=== PATIENT | male | born 1985 | race African-American/Black ===

== ENCOUNTER 2021-03-16 09:25 | Inpatient (IN) | payer OTHER, SELFPAY ==
[2021-03-16] MEDS ORDERED: DIPHENHYDRAMINE 50 MG/ML VIAL ONE (10:31)
[2021-03-16] MEDS ORDERED: METOCLOPRAMIDE 10 MG/2mL INJ ONE (10:31)
[2021-03-16] MEDS ORDERED: NA CHLORIDE 0.9% 500 ML ONE (10:31)
--- NOTE | 2021-03-16 10:40 | RAD REPORT ---
EXAM DESCRIPTION: CT - Head Brain Wo Cont - 03/16/2021 10:31 am CLINICAL HISTORY: HEADACHE Headache, hypertension, drowsiness COMPARISON: No comparisons TECHNIQUE: All CT scans are performed using dose optimization technique as appropriate and may inclu de automated exposure control or mA/KV adjustment according to patient size. FINDINGS: No intracranial hemorrhage, hydrocephalus or extra-axial fluid collection.There is a 17-18 mm area of diminished density seen in the region of the right insular cortex. No midline shift is ev ident. The paranasal sinuses and mastoids are clear. The calvarium is intact. IMPRESSION: 17 mm area of diminished density is seen in the right insular cortex region. Subacute CV A is a possibility. Recommend follow-up MRI brain with contrast for further assessment.
[2021-03-16 10:43] LABS: Absolute Lymphocytes (CBC) 2.8 K/uL (0.7-4.9); Basophils % 0.8 % (0-1.3); Hematocrit 45.2 % (39.6-49.0); MPV 8.9 fL (7.6-11.3); RBC Red Blood Cell Count 4.91 M/uL (4.33-5.43)
[2021-03-16 10:49] LABS: BUN Blood Urea Nitrogen 12 mg/dL (7-18); Bicarbonate 26 mmol/L (21-32); Glucose Level 168 mg/dL (74-106); Potassium 3.8 mmol/L (3.5-5.1); Sodium Level 138 mmol/L (136-145); Troponin (Emerg Dept Use Only) < 0.02 ng/mL (0.0-0.045)
--- NOTE | 2021-03-16 12:56 | RAD REPORT ---
EXAM DESCRIPTION: MRI - Brain W/Wo Cont - 03/16/2021 12:46 pm CLINICAL HISTORY: Headache COMPARISON: January 14, [address] TECHNIQUE: Axial, sagittal, and coronal magnetic images of the brain were obtained. 20 cc MultiHance administered intravenously FINDINGS: 25 millimeter area of abnormal signal right insular cortex. It does not enhance. Diffusion -weighted/ADC mapping sequences reveal that it is not an acute infarction No abnormal enhancement within the brain is seen. An extra-axial fluid collection is not noted. The ventricles are normal caliber Fluid within the sinuses/mastoids is not seen IMPRESSION: A 25 millimeter mass right insular cortex may represent a late subacute infarct or nonen hancing glioma. Prior inflammation is another consideration. Close follow-up recommended
--- NOTE | 2021-03-16 13:39 | ER ---
Nurse's Notes [facility] Name: Yusuf Garcia Age: 36 yrs Sex: Male : 1985 Arrival Date: 03/16/2021 Time: 09:31 Bed 17 Private MD: Diagnosis: Cerebral infarction Presentation: 03/16 09:41 Chief complaint: Patient states: headache x 1 month ago. Pt denies nausea/vomiting. aa5 09:41 Onset of symptoms was February 2021. aa5 09:41 Acuity: FIDENCIO 3 aa5 09:41 Method Of Arrival: Ambulatory aa5 09:41 Coronavirus screen: headache. Ebola Screen: Patient negative for fever greater than or aa5 equal to 101.5 degrees Fahrenheit, and additional compatible Ebola Virus Disease symptoms. Initial Sepsis Screen: Does the patient meet any 2 criteria? No. Patient's initial sepsis screen is negative. Does the patient have a suspected source of infection? No. Patient's initial sepsis screen is negative. Risk Assessment: Do you want to hurt yourself or someone else? Patient reports no desire to harm self or others. Triage Assessment: 10:27 Pain: Pain currently is 5 out of 10 on a pain scale. Pain began gradually, Also tr6 complains of no other associated symptoms. 10:28 Headache History: The patient has had previous headaches. General: Appears in no tr6 apparent distress. Historical: - Allergies: 10:05 No Known Allergies; aa5 - PMHx: 10:05 Hypertension; aa5 - PSHx: 10:05 hand sx; aa5 - Immunization history:: Adult Immunizations unknown. - Social history:: Smoking status: Patient reports the use of cigarette tobacco products, smokes one-half pack cigarettes per day. Screenin:27 Abuse screen: Denies threats or abuse. Denies injuries from another. Nutritional tr6 screening: No deficits noted. Tuberculosis screening: No symptoms or risk factors identified. Fall Risk None identified. Assessment: 10:25 General: Appears in no apparent distress. Behavior is calm, cooperative, appropriate tr6 for age. Pain: Complains of pain in c/o headache. Neuro: No deficits noted. Cardiovascular: No deficits noted. Respiratory: No deficits noted. GI: No deficits noted. : No deficits noted. EENT: No deficits noted. Derm: No deficits noted. Musculoskeletal: No deficits noted. 10:27 Reassessment: pt transported to CT via wheelchair. tr6 10:33 Reassessment: pt returned from ct. tr6 12:00 Reassessment: Patient and/or family updated on plan of care and expected duration. Pain tr6 level reassessed. Patient is alert, oriented x 3, equal unlabored respirations, skin warm/dry/pink. results reviewed with pt by PA. pt reports that his headache is better. Vital Signs: 09:41 BP 179 / 128; Pulse 85; Resp 18 S; Temp 98.2(TE); Pulse Ox 97% on R/A; Weight 106.59 kg aa5 (R); Height 6 ft. 1 in. (185.42 cm) (R); 10:24 BP 178 / 118; Resp 18; Pulse Ox 96% ; tr6 12:12 BP 143 / 89; Pulse 82; Resp 18; Pulse Ox 98% ; tr6 14:21 BP 176 / 111; Pulse 82; Resp 18; Pulse Ox 98% ; tr6 09:41 Body Mass Index 31.00 (106.59 kg, 185.42 cm) aa5 ED Course: 09:31 Patient arrived in ED. am2 09:31 Devendra Reynolds PA is PHCP. jm 09:31 Jared Shaffer MD is Attending Physician. jmm 09:41 Arm band placed on. aa5 09:59 Triage completed. aa5 10:24 No provider procedures requiring assistance completed. Inserted saline lock: 20 gauge tr6 in right antecubital area, using aseptic technique. Blood collected. 10:26 Troponin (emerg Dept Use Only) Sent. tr6 10:27 CBC with Diff Sent. tr6 10:27 Troponin (Emerg Dept Use Only) Sent. tr6 10:27 CBC with Automated Diff Sent. tr6 10:28 Patient has correct armband on for positive identification. Bed in low position. Call tr6 light in reach. Side rails up X 1. 10:34 CT Head Brain wo Cont In Process Unspecified. EDMS 13:39 Gordon Fragoso MD is Hospitalizing Provider. jmm 14:20 COVID-19 : Document "Date of Symptom Onset" if Symptomatic. Sent. tr6 Administered Medications: 10:26 Drug: NS 0.9% 500 ml Route: IV; Rate: bolus; Site: right antecubital; tr6 11:10 Follow up: IV Status: Completed infusion; IV Intake: 500ml tr6 10:26 Drug: Reglan (metoCLOPramide) 20 mg Route: IVP; Site: right antecubital; tr6 11:10 Follow up: Response: No adverse reaction; Pain is decreased tr6 10:26 Drug: diphenhydrAMINE 12.5 mg Route: IVP; Site: right antecubital; tr6 11:10 Follow up: Response: No adverse reaction tr6 14:03 Drug: PlaVIX (clopidogrel) 75 mg Route: PO; tr6 14:04 Follow up: Response: No adverse reaction tr6 14:03 Drug: Aspirin Chewable Tablet 324 mg Route: PO; tr6 14:03 Follow up: Response: No adverse reaction tr6 14:03 Drug: foLIC Acid 1 mg Route: IVPB; Site: right antecubital; tr6 14:04 Follow up: Response: No adverse reaction; IV Status: Completed infusion; IV Intake: 1ml tr6 Intake: 11:10 IV: 500ml; Total: 500ml. tr6 14:04 IV: 1ml; Total: 501ml. tr6 Outcome: 13:39 Decision to Hospitalize by Provider. kyung 19:24 Patient left the ED. ea Signatures: Dispatcher [employer] EDMS Devendra Reynolds PA PA jmm Calderon, Audri RN RN aa5 Antoinette Hidalgo Elena, RN RN ea Ramnanan, Tiffany, RN RN tr6 Corrections: (The following items were deleted from the chart) 09:59 09:53 Arm band placed on aa5 aa5
--- NOTE | 2021-03-16 13:40 | EDPHYS ---
Physician Documentation [facility] Name: Yusuf Garcia Age: 36 yrs Sex: Male : 1985 Arrival Date: 03/16/2021 Time: 09:31 Bed 17 Private MD: RG Physician Jared Shaffer HPI: 03/16 10:14 This 36 yrs old Black Male presents to ER via Ambulatory with complaints of Headache. jmm 10:14 The patient complains of pain to the forehead, left eye, left caodaism, left frontal jmm area, left side of the back of head, left temporal area and left occipital area. Onset: The symptoms/episode began/occurred gradually, 1 month(s) ago. Associated signs and symptoms: Pertinent negatives: fever, neck stiffness, paresthesias, Photophobia vision loss, vomiting. The patient has not experienced similar symptoms in the past. Historical: - Allergies: 10:05 No Known Allergies; aa5 - PMHx: 10:05 Hypertension; aa5 - PSHx: 10:05 hand sx; aa5 - Immunization history:: Adult Immunizations unknown. - Social history:: Smoking status: Patient reports the use of cigarette tobacco products, smokes one-half pack cigarettes per day. ROS: 10:14 Constitutional: Negative for fever, chills, and weight loss, Cardiovascular: Negative jmm for chest pain, palpitations, and edema, Respiratory: Negative for shortness of breath, cough, wheezing, and pleuritic chest pain. 10:14 Neuro: Positive for headache. 10:14 All other systems are negative. Exam: 10:14 Constitutional: This is a well developed, well nourished patient who is awake, alert, jmm and in no acute distress. Head/Face: atraumatic. Eyes: EOMI, no conjunctival erythema appreciated ENT: Moist Mucus Membranes Neck: Trachea midline, Supple Chest/axilla: Normal chest wall appearance and motion. Cardiovascular: Regular rate and rhythm. No edema appreciated Respiratory: Normal respirations, no respiratory distress appreciated Abdomen/GI: Non distended, soft Back: Normal ROM Skin: General appearance color normal MS/ Extremity: Moves all extremities, no obvious deformities appreciated, no edema noted to the lower extremities Neuro: Awake and alert, normal gait Psych: Behavior is normal, Mood is normal, Patient is cooperative and pleasant Vital Signs: 09:41 BP 179 / 128; Pulse 85; Resp 18 S; Temp 98.2(TE); Pulse Ox 97% on R/A; Weight 106.59 kg aa5 (R); Height 6 ft. 1 in. (185.42 cm) (R); 10:24 BP 178 / 118; Resp 18; Pulse Ox 96% ; tr6 12:12 BP 143 / 89; Pulse 82; Resp 18; Pulse Ox 98% ; tr6 14:21 BP 176 / 111; Pulse 82; Resp 18; Pulse Ox 98% ; tr6 09:41 Body Mass Index 31.00 (106.59 kg, 185.42 cm) aa5 MDM: 09:48 Patient medically screened. nini 13:36 Data reviewed: vital signs, nurses notes. Counseling: I had a detailed discussion with kyung the patient and/or guardian regarding: the historical points, exam findings, and any diagnostic results supporting the discharge/admit diagnosis, lab results, radiology results, the need for further work-up and treatment in the hospital. ED course: I discussed the patient with Dr. West whom recommends admission for further CVA evaluation. I discussed the patient with Dr. Rendon whom accepted the patient for admission. . 03/16 10:06 Order name: CBC with Diff [facility] 03/16 10:06 Order name: Troponin (emerg Dept Use Only) [facility] 03/16 10:06 Order name: BMP; Complete Time: 10:59 [facility] 03/16 10:06 Order name: CBC with Automated Diff; Complete Time: 10:59 [facility] 03/16 10:06 Order name: Troponin (Emerg Dept Use Only); Complete Time: 10:59 [facility] 03/16 14:18 Order name: COVID-19 : Document "Date of Symptom Onset" if Symptomatic. [facility] 03/16 10:08 Order name: CT Head Brain wo Cont; Complete Time: 10:43 [facility] 03/16 10:45 Order name: MRI - Brain Wo Cont [facility] 03/16 12:57 Order name: MRI; Complete Time: 13:09 [facility] 03/16 13:17 Order name: MRI - Brain With Cont [facility] 03/16 14:33 Order name: CORONAVIRUS [facility] 03/16 15:20 Order name: SARS-COV-2 RT PCR; Complete Time: 16:38 [facility] 03/16 18:21 Order name: Hemoglobin A1c; Complete Time: 18:25 [facility] 03/16 10:06 Order name: EKG - Nurse/Tech; Complete Time: 12:08 [facility] 03/16 10:06 Order name: Saline Lock; Complete Time: 10:27 [facility] 03/16 12:51 Order name: Diet Regular; Complete Time: 12:52 [facility] 03/16 14:17 Order name: Diet Regular; Complete Time: 14:18 mt Administered Medications: 10:26 Drug: NS 0.9% 500 ml Route: IV; Rate: bolus; Site: right antecubital; tr6 11:10 Follow up: IV Status: Completed infusion; IV Intake: 500ml tr6 10:26 Drug: Reglan (metoCLOPramide) 20 mg Route: IVP; Site: right antecubital; tr6 11:10 Follow up: Response: No adverse reaction; Pain is decreased tr6 10:26 Drug: diphenhydrAMINE 12.5 mg Route: IVP; Site: right antecubital; tr6 11:10 Follow up: Response: No adverse reaction tr6 14:03 Drug: PlaVIX (clopidogrel) 75 mg Route: PO; tr6 14:04 Follow up: Response: No adverse reaction tr6 14:03 Drug: Aspirin Chewable Tablet 324 mg Route: PO; tr6 14:03 Follow up: Response: No adverse reaction tr6 14:03 Drug: foLIC Acid 1 mg Route: IVPB; Site: right antecubital; tr6 14:04 Follow up: Response: No adverse reaction; IV Status: Completed infusion; IV Intake: 1ml tr6 Disposition: 03/17 07:26 Co-signature as Attending Physician, Jared Shaffer MD I agree with the assessment and nini plan of care. Disposition: 03/16/21 13:39 Hospitalization ordered by Gordon Fragoso for Inpatient Admission. Preliminary diagnosis is Cerebral infarction. - Bed requested for Telemetry/MedSurg (Inpatient). - Status is Inpatient Admission. ea - Condition is Stable. - Problem is new. - Symptoms are unchanged. Signatures: Dispatcher [employer] Mona Fabian RN RN dw Anderson, Corey, MD MD cha Mickail, Joel, PA PA Lore Olivera RN RN aa5 Raegan Okeefe RN RN Kristi Heller, RN RN tr6 Corrections: (The following items were deleted from the chart) 03/16 17:58 13:39 Hospitalization Ordered by Gordon Fragoso MD for Inpatient Admission. Preliminary dw diagnosis is Cerebral infarction. Bed requested for Telemetry/MedSurg (Inpatient). Status is Inpatient Admission. Condition is Stable. Problem is new. Symptoms are unchanged. [facility] 19:24 17:58 03/16/2021 13:39 Hospitalization Ordered by Gordon Fragoso MD for Inpatient ea Admission. Preliminary diagnosis is Cerebral infarction. Bed requested for Telemetry/MedSurg (Inpatient). Status is Inpatient Admission. Condition is Stable. Problem is new. Symptoms are unchanged. dw
[2021-03-16] MEDS ORDERED: ONDANSETRON 4 MG/2 ML VIAL IV PRN (13:57)
--- NOTE | 2021-03-16 14:03 | P.HP ---
Certification for Inpatient Patient admitted to: Observation With expected LOS: <2 Midnights Patient will require the following post-hospital care: None Practitioner: I am a practitioner with admitting privileges, knowledge of patient current condition, hospital course, and medical plan of care. Services: Services provided to patient in accordance with Admission requirements found in Title 42 Section 412.3 of the Code of Federal Regulations Patient History Date of Service: 03/16/21 Reason for admission: Headaches, TIA, uncontrolled hypertension History of Present Illness: y o male pt with hx of poorly controlled hypertension and hx of tobacco use who came to the ED for work up of suspected stroke. he had been having headaches for the last few weeks. He denied any overt feeling of weakness in any limbs. 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 He denied any falls or prior issues with strokes. No family hx of strokes. His work up was positive for a 25mm mass like lesion in the brain and no overt acute infarct on MRI. He was asked to be admitted for full neurology evaluation. Allergies Pertussis Vaccines Allergy (Uncoded 02/10/15 11:45) Unknown Review of Systems General: Weakness, Malaise Eyes: Unremarkable ENT: Unremarkable Respiratory: Unremarkable Cardiovascular: Unremarkable Gastrointestinal: Unremarkable Musculoskeletal: Unremarkable Integumentary: As per HPI, Unremarkable Neurological: Numbness, Unremarkable Physical Examination - Physical Exam General: Alert, Oriented x3, Cooperative HEENT: Atraumatic, Normocephalic Neck: Supple Respiratory: Clear to auscultation bilaterally Cardiovascular: Regular rate/rhythm, Normal S1 S2 Gastrointestinal: Soft and benign Neurological: Normal speech, Normal strength at 5/5 x4 extr, Normal tone, Cranial nerves 3-12 intact, Normal reflexes 2+, Normal affect - Studies Laboratory Data (last 24 hrs) 03/16/21 10:22: Sodium 138, Potassium 3.8, BUN 12, Creatinine 1.00, Glucose 168 H 03/16/21 10:22: WBC 13.10 H, Hgb 15.1, Hct 45.2, Plt Count 288 Assessment and Plan - Plan 1. Hypertension: His blood pressure is elevated at 170/113mmhg. In view of his suspected stroke, we will allow permissive hypertension for now. we will follow stroke BP protocol pending neurologist recommendation. 2. Brain TIA/mass: His presentation is concerning. He does have a mass like lesion in the brain measured at 25mm which may represent a subacute CVA also. we will work up further with lipid panel, hbA1c, echocardiogram. Neurologist to evaluate. CVA hypertension protocol to be followed. 3. Tobacco abuse: we will encourage tobacco use cessation. Discharge Plan: Home - Advance Directives Does patient have a Living Will: No Does patient have a Durable POA for Healthcare: No
[2021-03-16] MEDS ORDERED: FOLIC ACID 5 MG/ML VIAL ONE (14:15)
[2021-03-16] MEDS ORDERED: ASPIRIN 81 MG CHEWABLE TABLET ONE (14:16)
[2021-03-16] MEDS ORDERED: CLOPIDOGREL 75 MG TABLET ONE (14:16)
[2021-03-16] MEDS: ASPIRIN 81 MG CHEWABLE TABLET PO SCH (15:00)
[2021-03-16] MEDS ORDERED: NA CHLORIDE 0.9% 1,000 ML IV SCH (15:00)
[2021-03-16] MEDS: ENOXAPARIN 40 MG/0.4 ML SQ SCH (15:00)
[2021-03-16 15:49] VITALS: BMI 30.9
[2021-03-16] MEDS ORDERED: NA CHLORIDE 0.9% 1,000 ML ONE (16:34)
[2021-03-16] MEDS ORDERED: ENOXAPARIN 40 MG/0.4 ML SQ ONE (16:34)
[2021-03-16] MEDS: ZOLPIDEM TARTRATE 5 MG TABLET PO PRN (22:29)
[2021-03-16] MEDS: HYDRALAZINE HCL 20 MG/ML VIAL IV PRN (22:29)
[2021-03-17 04:16] LABS: Absolute Lymphocytes (CBC) 3.4 K/uL (0.7-4.9); Basophils % 0.8 % (0-1.3); Hematocrit 43.8 % (39.6-49.0); Lymphocytes % 24.6 % (15.3-44.8); MPV 8.7 fL (7.6-11.3); RBC Red Blood Cell Count 4.73 M/uL (4.33-5.43)
[2021-03-17 04:32] LABS: ALT/SGPT 83 U/L (12-78); AST/SGOT 51 U/L (15-37); Albumin 3.8 g/dL (3.4-5.0); Alkaline Phosphatase 101 U/L (45-117); BUN Blood Urea Nitrogen 15 mg/dL (7-18); Bicarbonate 32 mmol/L (21-32); Bilirubin Total 0.4 mg/dL (0.2-1.0); Glucose Level 136 mg/dL (74-106); HDL Cholesterol 33 mg/dL (40-60); Potassium 3.8 mmol/L (3.5-5.1); Protein, Total 7.7 g/dL (6.4-8.2); Sodium Level 139 mmol/L (136-145)
[2021-03-17 04:44] LABS: LDL, Direct 144 mg/dL (100-129)
[2021-03-17] MEDS: ENOXAPARIN 40 MG/0.4 ML SQ SCH (09:00)
[2021-03-17] MEDS: HYDRALAZINE HCL 20 MG/ML VIAL IV PRN ×2 (09:03→16:39)
[2021-03-17] MEDS: ASPIRIN 81 MG CHEWABLE TABLET PO SCH (09:03)
--- NOTE | 2021-03-17 10:48 | EKG ---
Test Date: 2021-03-16 Test Time: 12:02:07 Instructional Design Manager: SANIA MEASUREMENT RESULTS: Intervals: Rate: 75 OK: 158 QRSD: 96 QT: 392 QTc: 437 [place]: P: 50 OK: 158 QRS: 8 T: 206 INTERPRETIVE STATEMENTS: Normal sinus rhythm ST & T wave abnormality, consider inferolateral ischemia Abnormal ECG No previous ECG available for comparison Electronically Signed On 03-17-21 10:46:42 CDT by Jude Huerta
--- NOTE | 2021-03-17 11:51 | ECHO ---
HEIGHT: 6 ft 1 in WEIGHT: 235 lb 0 oz DATE OF STUDY: 03/17/[address]: Gordon Fragoso MD 2-DIMENSIONAL: YES M.MODE: YES DOPPLER: YES COLOR FLOW: YES TDS: PORTABLE: DEFINITY: BUBBLE STUDY: DIAGNOSIS: CEREBRAL VASCULAR ACCIENT SYMPTOMS CARDIAC HISTORY: CATHERIZATION: NO SURGERY: NO PROSTHETIC VALVE: NO PACEMAKER: NO MEASUREMENTS (cm) DIASTOLIC (NORMALS) SYSTOLIC (NORMALS) IVSd 1.3 (0.6-1.2) LA Diam 2.6 (1.9-4.0) LVEF 44% LVIDd 4.9 (3.5-5.7) LVIDs 3.8 (2.0-3.5) %FS 22% LVPWd 1.3 (0.6-1.2) Ao Diam 3.0 (2.0-3.7) 2 DIMENSIONAL ASSESSMENT: RIGHT ATRIUM: NORMAL LEFT ATRIUM: NORMAL RIGHT VENTRICLE: NORMAL LEFT VENTRICLE: LEFT VENTRICULAR HYPERTROPHY TRICUSPID VALVE: NORMAL MITRAL VALVE: NORMAL PULMONIC VALVE: NORMAL AORTIC VALVE: NORMAL PERICARDIAL EFFUSION: NONE AORTIC ROOT: NORMAL LEFT VENTRICULAR WALL MOTION: MILD GLOBAL HYPOKINESIS DOPPLER/COLOR FLOW: NORMAL COMMENTS: MILD GLOBAL HYPOKINESIS. LEFT VENTRICULAR HYPERTROPHY. NO EFFUSION. EJECTION FRACTION 44%. TECHNOLOGIST: JEREMIAH MAYS
[2021-03-17] MEDS: ACETAMINOPHEN 500 MG TAB PO PRN (15:19)
[2021-03-17] MEDS ORDERED: AMLODIPINE 5 MG TAB PO ONE (15:34)
[2021-03-17] MEDS ORDERED: MORPHINE 2 MG/ML SYR IV STA (18:23)
[2021-03-17] MEDS: TOPIRAMATE 25 MG TAB PO SCH ×2 (18:28→20:24)
[2021-03-17] MEDS: ZOLPIDEM TARTRATE 5 MG TABLET PO PRN (21:10)
--- NOTE | 2021-03-17 21:11 | CON ---
Reason For Consultation: Consultation was requested because of a possible stroke. History Of Present Illness: Mr. Garcia is a 36-year-old right-handed patient with hypertension and visit to the emergency room 6 years ago with left ear pain, comes in with at least a month to perhaps 2 months of headaches that may wake him at night, rated up to 10/10, pain can be f luctuating at times, would respond to [id number] medications like Tylenol or Advil, but the geraldine n may return. His evaluation at [facility] included a head CT scan done at 10 a.m. on 03/16. The study identified a 7 mm area of diminished density in the right insular cortex. It was s uspected it could be a subacute stroke. However, the brain MRI done following that study at 12:46 p. m. identified the areas of 25 mm area of abnormal signal in the right insular cortex. It did not enh ance in his MRI without contrast and the diffusion-weighted imaging series revealed it to not be an a cute stroke. The differential diagnosis therefore included the possibility of a late subacute stroke or a nonenhancing lower grade glioma. The radiologist also felt prior inflammatory changes in the a scotty, potentially could be an etiology. The patient himself self denies any history of weakness, numb ness in the face, arm, leg. No loss of vision, speech, hearing, balance, coordination. No focal jose rological deficits. Also, he denied any history of seizures, either focal or generalized, and the saravanan barnes's mother who was in the room with him also said she never known him to have any possibility of a seizure. His mother did say that he has had fine tremors since "age 1." She also said tremors run in the family including his multiple family members, his father and uncles also have very similar tr emors. Past Medical History: As indicated, hypertension and prior ear pain, but no other known history. Allergies: NO KNOWN DRUG ALLERGIES. Medications: No regular medications. Past Surgical History: Surgery on the hand. Family History: As indicated, strong family history of tremors and actually hypertension. Social History: He smokes 1 pack or half a pack of cigarettes daily and drinks alcohol occasionally. Review of Systems: No recent fevers, chills, nausea, vomiting, myalgias, arthralgias, rash. As noted, headache, but no focal deficits and no tearing or runny nose with the headaches. No injected sclerae with the headach es and no focal deficits with headaches. Physical Examination: Vital Signs: Blood pressure 183/117 and then down to 167/96, pulse ranged from 93 to 99, temperature 97.9, oxygen saturation 97%. General: Mr. Garcia is resting in bed. His mother is at the bedside and also a friend at the [facility]. HEENT: He is normocephalic, atraumatic. Sclerae anicteric. Oropharynx is pink and moist. Neck: Supple. Chest: Clear. Heart: Regular. Extremities: No edema, cyanosis, or clubbing. Neurological: He has a fine tremor with movement in the upper extremities, also subtly noted in the lower extremities and his flexion-extension tremors subside with inactivity. The further he reaches, then more of the tremor is pronounced. Otherwise, his cranial nerves show no focal deficits on . Motor examination, he has 5/5 proximally and distally in the upper and lower extremities. Sensation intact in the upper lower extremities to light touch, temperature, pinprick. Coordination intact in the upper and lower extremities except for the tremors indicated. Reflexes 2+ in the uppe r and lower extremities. Gait, he has good stance, stride, and arm swing. Laboratory Studies: Complete blood count with differential shows slightly elevated white blood cell count of 13.8, but was otherwise normal except for slightly elevated absolute neutrophils of 9. Chem istries show normal studies, however, his glucose did range up to 168. Hemoglobin A1c 6.3. Calcium 9. AST is elevated to 51, ALT elevated at 83. He has triglycerides elevated to 660, total cholester ol elevated 242, LDL cholesterol 144, HDL cholesterol low at 33, his cholesterol HDL ratio is elevate d at 7.33. COVID-19 test is negative. He has send out labs pending. Assessment: Mr. 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 He does not have a focal neurological deficit. It may be poss ible that the mass has been there chronically and at this point, potentially could have impacted the risk for headaches and he even have a risk for seizures given the location of the mass and again nega tive for stroke on diffusion-weighted imaging at least acutely. He should be evaluated by an additio nal scan, perhaps a CT angiogram, to help determine if the mass is supplied by blood vessels, which w ere negative tumor and if not, chronic stroke. He does have an echocardiogram showing ejection fract ion of 44% and global hypokinesis with left ventricular hypertrophy. Plan: 1.Keppra 250 mg twice daily. 2.Aspirin 81 mg daily. 3.Control blood pressure, so the systolic blood pressure is less than 180 and over the next week to 2 weeks, work on decreasing systolic blood pressure towards 140s, then 130s, then 120s. 4.The patient should have an interval scan of the brain and MRI without and with contrast to have de lineate the mass further and CT angiogram may be helpful. 5.He may benefit from a referral to Neurosurgery and once the patient is discharged, he should follo w up in Dr. West's clinic within a month. RISA/EDGARD Voice ID: [id number] Report ID: [id number]
[2021-03-17] MEDS ORDERED: LABETALOL 20 MG/4ML SYRINGE IV PRN (22:16)
[2021-03-17] MEDS ORDERED: PROMETHAZINE INJ 25 MG/ML AMP IV ONE (22:17)
[2021-03-17] MEDS ORDERED: MEPERIDINE HCL 25 MG/ML SYR IV ONE (22:17)
[2021-03-17] MEDS ORDERED: MEPERIDINE HCL 25 MG/ML SYR IV PRN (23:16)
[2021-03-18] MEDS ORDERED: levETIRAcetam 500 MG/5 ML OSYR ONE (00:02)
[2021-03-18] MEDS ORDERED: NA CHLORIDE 0.9% 100 ML ONE (00:03)
[2021-03-18] MEDS: levETIRAcetam 500 MG in NA CHLORIDE 0.9% 100 ML IV SCH ×3 (00:14→21:05)
[2021-03-18] MEDS ORDERED: LEVETIRACETAM 500 MG/5 ML VIAL IV ONE (00:24)
[2021-03-18] MEDS: ASPIRIN 81 MG CHEWABLE TABLET PO SCH (08:36)
[2021-03-18] MEDS: TOPIRAMATE 25 MG TAB PO SCH ×2 (08:36→21:05)
[2021-03-18] MEDS: ENOXAPARIN 40 MG/0.4 ML SQ SCH (08:37)
[2021-03-18] MEDS: AMLODIPINE 10 MG TAB PO SCH (08:37)
[2021-03-18] MEDS: NA CHLORIDE 0.9% 1,000 ML IV SCH ×2 (08:38→21:18)
[2021-03-18 09:52] VITALS: O2SAT 99
[2021-03-18] MEDS: NICOTINE 21 MG/PAT TD SCH (18:16)
[2021-03-18] MEDS: ACETAMINOPHEN 500 MG TAB PO PRN (18:16)
[2021-03-18] MEDS ORDERED: HYDROCODONE/APAP 10/325 TAB PO PRN (19:46)
[2021-03-18] MEDS ORDERED: METOPROLOL TAR 50 MG TAB PO SCH (21:00)
[2021-03-18] MEDS: METOPROLOL TAR 50 MG TAB PO SCH (22:00)
[2021-03-19] MEDS: levETIRAcetam 500 MG in NA CHLORIDE 0.9% 100 ML IV SCH (08:53)
[2021-03-19] MEDS: ENOXAPARIN 40 MG/0.4 ML SQ SCH (09:00)
[2021-03-19] MEDS: ASPIRIN 81 MG CHEWABLE TABLET PO SCH (09:00)
[2021-03-19] MEDS: TOPIRAMATE 25 MG TAB PO SCH (09:00)
[2021-03-19] MEDS: NICOTINE 21 MG/PAT TD SCH (09:00)
[2021-03-19] MEDS: AMLODIPINE 10 MG TAB PO SCH (09:00)
[2021-03-19] MEDS: METOPROLOL TAR 50 MG TAB PO SCH (09:04)
[2021-03-19 12:38] VITALS: BP 145/89; TEMP 97.8
--- NOTE | 2021-03-23 23:07 | P.PN ---
Subjective Date of Service: 03/17/21 Patient's blood pressure has been significantly elevated. MRI did reveal possible acute infarct versus glioma. Will discuss with neurology regarding plan of care. Review of Systems 10-point ROS is otherwise unremarkable Physical Examination - Vital Signs Temperature: 97.8 F Blood Pressure: 145/89 Pulse: 85 Respirations: 18 Pulse Ox (%): 97 - Physical Exam General: Alert, In no apparent distress, Oriented x3, Other (Significant headache ) Respiratory: Clear to auscultation bilaterally, Normal air movement Cardiovascular: Regular rate/rhythm, Normal S1 S2, No murmurs Gastrointestinal: Normal bowel sounds, Soft and benign, Non-distended, No tenderness Musculoskeletal: No clubbing, No swelling, No tenderness Neurological: Sensation intact, Cranial nerves 3-12 intact - Studies Medications List Reviewed: Yes Assessment & Plan - Problems (Diagnosis) (1) Acute CVA (cerebrovascular accident) Status: Acute (2) Glioma of brain Status: Acute (3) Uncontrolled hypertension Status: Acute - Plan -MRI of the brain Reviewed -neurology consultation Appreciated -physical therapy evaluation -DVT prophylaxis -Antiplatelet therapy and statin therapy -Lipid profile -Repeat MRI in 4-6 weeks Discharge Plan: Home Plan to discharge in: Greater than 2 days - Advance Directives Does patient have a Living Will: No Does patient have a Durable POA for Healthcare: No - Code Status/Comfort Care Code Status Assessed: Yes Code Status: Full Code Critical Care: No Time Spent Managing PTS Care (In Minutes): 35
--- NOTE | 2021-03-23 23:16 | P.PN ---
Date of Service: 03/18/21 Subjective Blood pressure and headaches somewhat better controlled. Continue to manage at this time Review of Systems 10-point ROS is otherwise unremarkable Physical Examination - Vital Signs Reviewed - Physical Exam General: Alert, In no apparent distress, Oriented x3, Other (Significant headache ) Respiratory: Clear to auscultation bilaterally, Normal air movement Cardiovascular: Regular rate/rhythm, Normal S1 S2, No murmurs Gastrointestinal: Normal bowel sounds, Soft and benign, Non-distended, No tenderness Musculoskeletal: No clubbing, No swelling, No tenderness Neurological: Sensation intact, Cranial nerves 3-12 intact - Studies Medications List Reviewed: Yes Assessment & Plan - Problems (Diagnosis) (1) Acute CVA (cerebrovascular accident) Status: Acute (2) Glioma of brain Status: Acute (3) Uncontrolled hypertension Status: Acute - Plan Continue with plan of care as mentioned below -MRI of the brain reviewed -neurology consultation Appreciated -physical therapy evaluation -DVT prophylaxis -Antiplatelet therapy and statin therapy -Lipid profile -Repeat MRI in 4-6 weeks
--- NOTE | 2021-03-23 23:26 | P.DS ---
Discharge Date: 03/19/21 Disposition: ROUTINE DISCHARGE Discharge Condition: GOOD Reason for Admission: Headaches, TIA, uncontrolled hypertension Consultations: Neurology - Problems (1) Acute CVA (cerebrovascular accident) Status: Acute (2) Glioma of brain Status: Acute (3) Uncontrolled hypertension Status: Acute Brief History of Present Illness: Patient is a 36 yo male pt with hx of poorly controlled hypertension and hx of tobacco use who came to the ED for work up of suspected stroke. he had been having headaches for the last few weeks. He denied any overt feeling of weakness in any limbs. 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 He denied any falls or prior issues with strokes. No family hx of strokes. His work up was positive for a 25mm mass like lesion in the brain and no overt acute infarct on MRI. He was asked to be admitted for full neurology evaluation. Hospital Course: Patient did well during hospital stay. Blood pressure was better controlled. Her headache was controlled. Patient will be followed by neurology as now patient. Repeat MRI. This can be done in 4-6 weeks. Outpatient follow with neurology. Strict blood pressure control. Vital Signs/Physical Exam: Temp Pulse Resp BP Pulse Ox 97.8 F 85 18 145/89 H 97 03/23/21 23:12 03/23/21 23:12 03/23/21 23:12 03/23/21 23:12 03/23/21 23:12 General: Alert, In no apparent distress, Oriented x3 Laboratory Data at Discharge: WBC 13.80 K/uL (4.3-10.9) H 03/17/21 03:41 Hgb 14.7 g/dL (13.6-17.9) 03/17/21 03:41 Hct 43.8 % (39.6-49.0) 03/17/21 03:41 Plt Count 280 K/uL (152-406) 03/17/21 03:41 Sodium 139 mmol/L (136-145) 03/17/21 03:41 Potassium 3.8 mmol/L (3.5-5.1) 03/17/21 03:41 BUN 15 mg/dL (7-18) 03/17/21 03:41 Creatinine 1.17 mg/dL (0.55-1.3) 03/17/21 03:41 Glucose 136 mg/dL (74-106) H 03/17/21 03:41 Total Bilirubin 0.4 mg/dL (0.2-1.0) 03/17/21 03:41 AST 51 U/L (15-37) H 03/17/21 03:41 ALT 83 U/L (12-78) H 03/17/21 03:41 Alkaline Phosphatase 101 U/L (45-117) 03/17/21 03:41 Triglycerides 660 mg/dL (<150) H 03/17/21 03:41 Cholesterol 242 mg/dL (<200) H 03/17/21 03:41 LDL Cholesterol Direct 144 mg/dL (100-129) H 03/17/21 03:41 HDL Cholesterol 33 mg/dL (40-60) L 03/17/21 03:41 Cholesterol/HDL Ratio 7.33 03/17/21 03:41 Home Medications: Amlodipine [Norvasc*] 10 mg PO DAILY #30 tab 03/19/21 Aspirin [Ecotrin 81 MG] 162 mg PO DAILY #60 tablet. 03/19/21 Atorvastatin Calcium [Lipitor] 20 mg PO BEDTIME #30 tab 03/19/21 Metoprolol Tartrate [Lopressor*] 50 mg PO BID #60 tab 03/19/21 Topiramate [Topamax*] 25 mg PO BID #60 tab 03/19/21 Hydrocodone 10/APAP 325 [[place] 10/325] 1 tab PO Q6H PRN #30 tab 03/20/21 New Medications: Aspirin [Ecotrin 81 MG] 162 mg PO DAILY #60 tablet. Atorvastatin Calcium [Lipitor] 20 mg PO BEDTIME #30 tab Metoprolol Tartrate [Lopressor*] 50 mg PO BID #60 tab Hydrocodone 10/APAP 325 [[place] 10/325] 1 tab PO Q6H PRN #30 tab PRN Reason: Pain Amlodipine [Norvasc*] 10 mg PO DAILY #30 tab Topiramate [Topamax*] 25 mg PO BID #60 tab Physician Discharge Instructions: PROBLEM: Stroke GOAL: Clear understanding of disease process E-scripts sent to [facility] in [place]. INSTRUCTIONS: - Ok to discontinue IV and discharge home. - Follow up with your primary care provider in 1-2 weeks. - Follow up with Neurology in 1-2 weeks. - Return to the ER if your symptoms worsen. - Call or text Dr. Reyes at if any questions regarding hospital stay. - Please call the 4th floor at if you have any medication or nursing questions. Diet: Heart healthy Activity: Fall precautions IMMUNIZATION Influenza Vaccine Indicated: Influenza Vaccine Given: Date Given: Pneumonia Vaccine Indicated: No Pneumonia Vaccine Given: Date Given: Diet: AHA Activity: Fall precautions Followup: Damion West MD [ASSOCIATE-ACTIVE - CAN ADMIT] - Time spent managing pt's care (in minutes): 35
== END 2021-03-19 13:10 | disposition home or self-care (01) | DRG 65 ==
LOC: ER 09:25 → ERHOLD 13:59 → 4TH 18:38 → OBSVTOIN 03-17 08:53
PROVIDERS: ADMIT Internal Medicine Nephrology; ATTEND Hospitalist
DX: I63.9 Cerebral infarction, unspecified (principal); C71.9 Malignant neoplasm of brain, unspecified; I10 Essential (primary) hypertension; F17.210 Nicotine dependence, cigarettes, uncomplicated; R51.9 Headache, unspecified; H57.12 Ocular pain, left eye; Z88.7 Allergy status to serum and vaccine; Z79.82 Long term (current) use of aspirin; Z79.899 Other long term (current) drug therapy; Z20.822 Contact with and (suspected) exposure to COVID-19
CPT/HCPCS: 36415; 70450; 70553; 80048; 80053; 80061; 83036; 84484; 85025; 93005; 93306; 96361; 96374; 96375; 99284; A9577; G0378; J0360; J1200; J1650; J1953; J2175; J2270; J2550; J2765; J7030; J7040; U0003

== ENCOUNTER 2022-04-20 18:43 | Emergency (ER) | payer OTHER ==
--- NOTE | 2022-04-20 20:42 | RAD REPORT ---
EXAM DESCRIPTION: CT - Head Brain Wo Cont - 04/20/2022 8:11 pm CLINICAL HISTORY: Headache, sudden, severe COMPARISON: Brain W/Wo Cont dated 03/16/2021; Head Brain Wo Cont dated 03/16/2021 TECHNIQUE: Axial 5 mm thick images of the head were obtained without IV contrast. All CT scans are performed using dose optimization technique as appropriate and may include automated exposure control or mA/KV adjustment according to patient size. FINDINGS: No intracranial hemorrhage, mass, edema or shift of mid-line structures. No acute infarcti on changes are seen. There is no cortical edema or sulcal effacement. An area of diminished attenuati on is again noted in the right insular cortex region. This is not clearly different from the prior ex amination. Delete select There is no evidence for growth since March 2021. No abnormal extra-axial flui d collections. Ventricles are normal. Mastoid air cells and visualized portions of the paranasal sinuses are clear. No acute bony findings. IMPRESSION: Negative non-contrast CT head examination for acute finding. Focal abnormality in the right insular cortex has not clearly changed from March 2021. This is probably an area of old infarction. Mass lesion would not be likely given the absence of growth.
[2022-04-20] MEDS ORDERED: NA CHLORIDE 0.9% 1,000 ML ONE (20:57)
[2022-04-20] MEDS ORDERED: NA CHLORIDE 0.9% 50 ML ONE (20:57)
[2022-04-20] MEDS ORDERED: METOCLOPRAMIDE 10 MG/2mL INJ ONE (20:57)
[2022-04-20] MEDS ORDERED: DIPHENHYDRAMINE 50 MG/ML VIAL ONE (20:57)
[2022-04-20] MEDS ORDERED: BEBTELOVIMAB 175 MG/2 ML VIAL IV ONE (21:02)
[2022-04-20 21:04] LABS: Absolute Lymphocytes (CBC) 4.2 K/uL (0.7-4.9); Hematocrit 42.9 % (39.6-49.0); Lymphocytes % 35.4 % (15.3-44.8); MPV 7.5 fL (7.6-11.3); RBC Red Blood Cell Count 4.75 M/uL (4.33-5.43)
[2022-04-20 21:13] LABS: Protime INR 0.99
[2022-04-20 21:17] LABS: Albumin 4.1 g/dL (3.4-5.0); BUN Blood Urea Nitrogen 9 mg/dL (7-18); Bicarbonate 20 mmol/L (21-32); Glucose Level 119 mg/dL (74-106); Potassium 3.4 mmol/L (3.5-5.1); Sodium Level 138 mmol/L (136-145)
[2022-04-20 21:41] LABS: AST/SGOT 121 U/L (15-37); Alkaline Phosphatase 104 U/L (45-117); Bilirubin Direct 0.1 mg/dL (0-0.2); Bilirubin Total 0.2 mg/dL (0.2-1.0); Glomerular Filtration Rate 90 ml/min (=/>90); Protein, Total 8.1 g/dL (6.4-8.2)
[2022-04-20 21:42] LABS: Urine Blood Negative (Negative); Urine Glucose Negative (Negative); Urine Protein Negative (Negative); Urine Specific Gravity <=1.005 (1.005-1.030); Urine pH 5.5 (5.0-7.0)
[2022-04-20 22:18] LABS: Barbiturates NEGATIVE (NEGATIVE); Benzodiazepines NEGATIVE (NEGATIVE); Cocaine NEGATIVE (NEGATIVE); METHAMPHETAM NEGATIVE (NEGATIVE); Methadone NEGATIVE (NEGATIVE); Opiates NEGATIVE (NEGATIVE); Phencyclidine NEGATIVE (NEGATIVE); THC Cannibis NEGATIVE (NEGATIVE)
[2022-04-20 23:09] LABS: ALT/SGPT ND U/L (12-78)
--- NOTE | 2022-04-20 23:29 | EDPHYS ---
Physician Documentation [facility] Name: Yusuf Garcia Age: 37 yrs Sex: Male : 1985 Arrival Date: 04/20/2022 Time: 18:47 Bed 11 Private MD: ED Physician Phillip Ding HPI: 04/20 20:20 This 37 yrs old Black Male presents to ER via Ambulatory with complaints of Headache. [facility] 20:20 The patient complains of pain to the forehead. The patient describes the headache as 7 intermittent, throbbing, waxing and waning. Onset: The symptoms/episode began/occurred 3 month(s) ago. 20:20 Associated signs and symptoms: Pertinent negatives: altered mental status, dizziness, mh7 fever, malaise, nausea, neck stiffness, paresthesias, Photophobia rash, sinus congestion, sinus tenderness, vision changes, vision loss, vomiting, weakness, vertigo. 20:20 Severity of symptoms: At its worst the pain was moderate, 14 day(s) ago, in the [facility] emergency department the pain has improved, moderately. Headache History: The patient has had previous headaches and this one is similar to previous episodes. The symptoms are alleviated by nothing. the symptoms are aggravated by nothing. Historical: - Allergies: 18:56 No Known Allergies; ld1 - Home Meds: 18:52 metoprolol tartrate 37.5 mg Oral tab 1 tab once daily [Active]; amlodipine 5 mg tab 1 ld1 tab once daily [Active]; Topamax 25 mg Oral tab 1 tab once daily [Active]; - PMHx: 18:52 Hypertension; ld1 18:56 Brain bleed; ld1 - PSHx: 18:52 None; ld1 - Immunization history:: Adult Immunizations up to date, Client reports receiving the 2nd dose of the Covid vaccine. - Social history:: Smoking status: Patient reports the use of cigarette tobacco products, smokes one-half pack cigarettes per day, Patient uses alcohol, on a daily basis. ROS: 20:20 Constitutional: Negative for fever, chills, and weight loss, Eyes: Negative for injury, mh7 pain, redness, and discharge, ENT: Negative for injury, pain, and discharge, Neck: Negative for injury, pain, and swelling, Cardiovascular: Negative for chest pain, palpitations, and edema, Respiratory: Negative for shortness of breath, cough, wheezing, and pleuritic chest pain, Abdomen/GI: Negative for abdominal pain, nausea, vomiting, diarrhea, and constipation, Back: Negative for injury and pain, : Negative for injury, bleeding, discharge, and swelling, MS/Extremity: Negative for injury and deformity, Skin: Negative for injury, rash, and discoloration, Psych: Negative for depression, anxiety, suicide ideation, homicidal ideation, and hallucinations, Allergy/Immunology: Negative for hives, rash, and allergies, Endocrine: Negative for neck swelling, polydipsia, polyuria, polyphagia, and marked weight changes, Hematologic/Lymphatic: Negative for swollen nodes, abnormal bleeding, and unusual bruising. Exam: 20:20 Constitutional: This is a well developed, well nourished patient who is awake, alert, mh7 and in no acute distress. Head/Face: Normocephalic, atraumatic. Eyes: Pupils equal round and reactive to light, extra-ocular motions intact. Lids and lashes normal. Conjunctiva and sclera are non-icteric and not injected. Cornea within normal limits. Periorbital areas with no swelling, redness, or edema. ENT: Nares patent. No nasal discharge, no septal abnormalities noted. Tympanic membranes are normal and external auditory canals are clear. Oropharynx with no redness, swelling, or masses, exudates, or evidence of obstruction, uvula midline. Mucous membranes moist. Neck: Trachea midline, no thyromegaly or masses palpated, and no cervical lymphadenopathy. Supple, full range of motion without nuchal rigidity, or vertebral point tenderness. No Meningismus. Chest/axilla: Normal chest wall appearance and motion. Nontender with no deformity. No lesions are appreciated. Cardiovascular: Regular rate and rhythm with a normal S1 and S2. No gallops, murmurs, or rubs. Normal PMI, no JVD. No pulse deficits. Respiratory: Lungs have equal breath sounds bilaterally, clear to auscultation and percussion. No rales, rhonchi or wheezes noted. No increased work of breathing, no retractions or nasal flaring. Abdomen/GI: Soft, non-tender, with normal bowel sounds. No distension or tympany. No guarding or rebound. No evidence of tenderness throughout. Back: No spinal tenderness. No costovertebral tenderness. Full range of motion. Skin: Warm, dry with normal turgor. Normal color with no rashes, no lesions, and no evidence of cellulitis. MS/ Extremity: Pulses equal, no cyanosis. Neurovascular intact. Full, normal range of motion. Neuro: Awake and alert, GCS 15, oriented to person, place, time, and situation. Cranial nerves II-XII grossly intact. Motor strength 5/5 in all extremities. Sensory grossly intact. Cerebellar exam normal. Normal gait. Psych: Awake, alert, with orientation to person, place and time. Behavior, mood, and affect are within normal limits. Vital Signs: 18:52 BP 146 / 90; Pulse 89; Resp 18; Temp 97.0(TE); Pulse Ox 96% on R/A; Weight 104.33 kg; ld1 Height 6 ft. 0 in. (182.88 cm); Pain 5/10; 22:00 BP 123 / 71; Pulse 78; Resp 18; Pulse Ox 96% on R/A; oe 18:52 Body Mass Index 31.19 (104.33 kg, 182.88 cm) ld1 MDM: 23:00 Differential diagnosis: cluster headache, hypertensive headache, intracerebral 7 hemorrhage, migraine, tension headache. 23:00 Data reviewed: vital signs, nurses notes, lab test result(s), CBC, electrolytes, [facility] radiologic studies, CT scan. Data interpreted: Pulse oximetry: on room air is 96 %. ED course: Patient eloped from ED. . 04/21 02:[address] [facility] 04/20 20:30 Order name: CBC with Diff; Complete Time: 21:31 [facility] 04/20 20:30 Order name: Basic Metabolic Panel; Complete Time: 23:12 [facility] 04/20 20:30 Order name: LFT's; Complete Time: 23:12 [facility] 04/20 20:30 Order name: Protime (+inr); Complete Time: 21:31 [facility] 04/20 20:30 Order name: Ptt, Activated; Complete Time: 21:31 [facility] 04/20 20:30 Order name: UDS; Complete Time: 22:24 [facility] 04/20 19:43 Order name: CT Head Brain wo Cont; Complete Time: 20:46 [facility] 04/20 20:30 Order name: Saline Lock; Complete Time: 20:45 [facility] 04/20 20:30 Order name: Urine Dipstick-Ancillary (obtain specimen); Complete Time: 21:38 [facility] 04/20 21:42 Order name: Urine Dipstick-Ancillary; Complete Time: 22:18 EDMS Administered Medications: 04/20 21:10 Drug: NS 0.9% 1000 ml Route: IV; Rate: 1000 ml; Site: right antecubital; vc1 21:10 Drug: Reglan (metoCLOPramide) 10 mg Route: IVP; Site: right antecubital; vc1 21:10 Drug: Benadryl (diphenhydrAMINE) 50 mg Route: IVP; Site: right antecubital; vc1 Disposition Summary: 04/20/22 23:28 Eloped Disposition: after being seen by provider ld1 Reason: unknown ld1 Signatures: Dispatcher [employer] EDMS Phillip Ding MD MD 7 Bridget Forde RN RN ld1 Beverly Grimes RN RN vc1
--- NOTE | 2022-04-20 23:29 | ER ---
Nurse's Notes [facility] Name: Yusuf Garcia Age: 37 yrs Sex: Male : 1985 Arrival Date: 04/20/2022 Time: 18:47 Bed 11 Private MD: Diagnosis: Presentation: 04/20 18:51 Chief complaint: Patient states: Headache began beginning of March - continuous headache. ld1 Pt reports "I am tired of dealing with this.". Coronavirus screen: At this time, the client does not indicate any symptoms associated with coronavirus-19. Ebola Screen: No symptoms or risks identified at this time. Initial Sepsis Screen: Does the patient meet any 2 criteria? No. Patient's initial sepsis screen is negative. Does the patient have a suspected source of infection? No. Patient's initial sepsis screen is negative. Risk Assessment: Do you want to hurt yourself or someone else? Patient reports no desire to harm self or others. Onset of symptoms was April 20, 2022. 18:51 Method Of Arrival: Ambulatory ld1 18:51 Acuity: FIDENCIO 3 ld1 Triage Assessment: 18:52 Headache History: The patient has had previous headaches and this one is similar to ld1 previous episodes. General: Appears in no apparent distress. comfortable, Behavior is calm, cooperative, appropriate for age. Pain: Complains of pain in face Pain does not radiate. Pain currently is 5 out of 10 on a pain scale. Quality of pain is described as throbbing. Pain: Pain began 2 months. Pain: Also complains of no other associated symptoms. EENT: No signs and/or symptoms were reported regarding the EENT system. Neuro: Level of Consciousness is awake, alert, obeys commands, Oriented to person, place, time, situation. Cardiovascular: Capillary refill < 3 seconds Patient's skin is warm and dry. Rhythm is regular. Respiratory: Airway is patent Respiratory effort is even, unlabored. GI: Abdomen is round non-distended. : No signs and/or symptoms were reported regarding the genitourinary system. Derm: No signs and/or symptoms reported regarding the dermatologic system. Musculoskeletal: No signs and/or symptoms reported regarding the musculoskeletal system. Historical: - Allergies: 18:56 No Known Allergies; ld1 - Home Meds: 18:52 metoprolol tartrate 37.5 mg Oral tab 1 tab once daily [Active]; amlodipine 5 mg tab 1 ld1 tab once daily [Active]; Topamax 25 mg Oral tab 1 tab once daily [Active]; - PMHx: 18:52 Hypertension; ld1 18:56 Brain bleed; ld1 - PSHx: 18:52 None; ld1 - Immunization history:: Adult Immunizations up to date, Client reports receiving the 2nd dose of the Covid vaccine. - Social history:: Smoking status: Patient reports the use of cigarette tobacco products, smokes one-half pack cigarettes per day, Patient uses alcohol, on a daily basis. Screenin:40 Abuse screen: Denies threats or abuse. Nutritional screening: No deficits noted. vc1 Tuberculosis screening: No symptoms or risk factors identified. Fall Risk None identified. Assessment: 20:00 Reassessment: See triage assessment. vc1 21:00 Reassessment: Patient and/or family updated on plan of care and expected duration. Pain vc1 level reassessed. Patient is alert, oriented x 3, equal unlabored respirations, skin warm/dry/pink. 22:00 Reassessment: Patient and/or family updated on plan of care and expected duration. Pain vc1 level reassessed. Patient is alert, oriented x 3, equal unlabored respirations, skin warm/dry/pink. Patient laying with eyes closed, snoring. 23:10 Reassessment: Patient not in room, IV on floor. vc1 Vital Signs: 18:52 BP 146 / 90; Pulse 89; Resp 18; Temp 97.0(TE); Pulse Ox 96% on R/A; Weight 104.33 kg; ld1 Height 6 ft. 0 in. (182.88 cm); Pain 5/10; 22:00 BP 123 / 71; Pulse 78; Resp 18; Pulse Ox 96% on R/A; oe 18:52 Body Mass Index 31.19 (104.33 kg, 182.88 cm) ld1 ED Course: 18:47 Patient arrived in ED. jj6 18:52 Triage completed. ld1 18:52 Arm band placed on right wrist. ld1 20:03 Phillip Ding MD is Attending Physician. mh7 20:13 CT Head Brain wo Cont In Process Unspecified. EDMS 20:45 Inserted saline lock: 20 gauge in right antecubital area, using aseptic technique. zm Blood collected. 21:20 Patient has correct armband on for positive identification. Bed in low position. Call vc1 light in reach. Pulse ox on. NIBP on. Door closed. Warm blanket given. PO fluids given. sandwich given. 21:41 No provider procedures requiring assistance completed. vc1 Administered Medications: 21:10 Drug: NS 0.9% 1000 ml Route: IV; Rate: 1000 ml; Site: right antecubital; vc1 21:10 Drug: Reglan (metoCLOPramide) 10 mg Route: IVP; Site: right antecubital; vc1 21:10 Drug: Benadryl (diphenhydrAMINE) 50 mg Route: IVP; Site: right antecubital; vc1 Outcome: 23:12 Eloped from patient exam room, after seeing physician Time discovered patient gone: vc1 April 20, 2022 at 23:05 23:12 Condition: good 23:28 Patient left the ED. ld1 Signatures: Dispatcher [employer] EDMS Deniz Ernst Maurice, MD MD mh7 Bridget Forde RN RN ld1 Candy Jackman [email or web address] Beverly Grimes RN RN vc1 Karena Spring Corrections: (The following items were deleted from the chart) 19:43 18:51 Acuity: FIDENCIO 4 ld1 ld1 19:44 18:51 Acuity: FIDENCIO 2 ld1 ld1
[2022-04-20 23:44] VITALS: TEMP 97; O2SAT 96
[2022-04-20 23:45] VITALS: BP 123/71
== END 2022-04-20 23:28 | disposition left against medical advice (07) ==
LOC: ER 18:43
DX: R51.9 Headache, unspecified (principal); I10 Essential (primary) hypertension; Z53.29 Procedure and treatment not carried out because of patient's decision for other reasons
CPT/HCPCS: 85025; 80048; 36415; 85610; 80076; 85730; 81003; 80307; 70450; 96375; 96374; 99284; J2765; J1200; J7030